=== PATIENT | female | born 1970 | race Caucasian/White ===

== ENCOUNTER 2019-01-19 13:14 | Day surgery (SDC) | payer BC ==
[2019-01-19] MEDS ORDERED: LACTATED RINGERS 1,000 ML IV ONE (13:46)
--- NOTE | 2019-01-19 15:18 | ANESTHESIA ---
Pre-Anesthesia VS, & Labs - Diagnosis anemia, abdominal pain, change in bowel habits - Procedure colonoscopy, EGD Vital Signs: Temp Pulse Resp BP Pulse Ox 37.4 C 79 18 134/85 H 100 01/19/19 13:49 01/19/19 13:49 01/19/19 13:49 01/19/19 13:49 01/19/19 13:49 Height 5 ft 6 in Weight (kg) 83 kg - NPO >8 hours, Other (16oz of prep last at 8;30) - Is Patient ?: Waiver signed Home Medications and Allergies Home Medications: Ambulatory Orders Ferrous Gluconate [Iron] 60 mg PO DAILY 01/13/19 Levothyroxine [Synthroid] 112 mcg PO QDAC 01/13/19 QUEtiapine [SEROquel] 12 - 25 mg PO QPM 01/13/19 buPROPion HCl [Wellbutrin Sr] 200 mg PO DAILY 01/13/19 dilTIAZem HCl [Diltiazem ER] 180 mg PO DAILY 01/13/19 Ferrous Gluconate [Iron] 60 mg PO DAILY 01/13/19 Levothyroxine [Synthroid] 112 mcg PO QDAC 01/13/19 QUEtiapine [SEROquel] 12 - 25 mg PO QPM 01/13/19 buPROPion HCl [Wellbutrin Sr] 200 mg PO DAILY 01/13/19 dilTIAZem HCl [Diltiazem ER] 180 mg PO DAILY 01/13/19 Allergies/Adverse Reactions: Allergies Allergy/AdvReac Type Severity Reaction Status Date / Time hydrocodone [From Vicodin] Allergy Anaphylaxis Verified 01/13/19 16:51 latex Allergy Rash Verified 01/13/19 16:51 oxycodone [From Percocet] Allergy Anaphylaxis Verified 01/13/19 16:51 Penicillins Allergy Itching Verified 01/13/19 16:51 Sulfa (Sulfonamide Allergy Anaphylaxis Verified 01/13/19 16:51 Antibiotics) Anes History & Medical History - Anesthetic History Anesthesia Complications: reports: No previous complications - Medical History Cardiovascular: reports: None Pulmonary: reports: Asthma, Other Gastrointestinal: reports: GERD, Hiatal hernia Urinary: reports: Other Musculoskeletal: reports: Chronic back pain Endocrine/Autoimmune: reports: HyPOthyroidism Skin: reports: None - Surgical History General: Gastric surgery, Hiatal hernia repair, Other Eyes Ears Nose Throat (EENT): Tonsil/Adenoidectomy, Other Exam General: Alert Dental: WNL Mouth Opening: Greater than 4 Fingerbreadths Mallampati classification: II Thyromental Distance: greater than 6 cm Respiratory: Lungs clear Cardiovascular: Regular rate, Normal S1, Normal S2 Mental/Cognitive Status: Alert/Oriented X3 Plan Anesthesia Type: MAC Consent for Procedure(s) Verified and Reviewed: Yes Code Status: Attempt Resuscitation ASA classification: 2-Mild systemic disease Is this case an emergency?: No
[2019-01-19 17:44] VITALS: BP 132/78
== END 2019-01-19 13:15 | disposition home or self-care (01) ==
LOC: SDS 13:14
PROVIDERS: ATTEND Internal Medicine
PROC: 0DB48ZX Excision of Esophagogastric Junction, Via Natural or Artificial Opening Endoscopic, Diagnostic (ICD-10-PCS; 2019-01-19)
PROC: 0DJD8ZZ Inspection of Lower Intestinal Tract, Via Natural or Artificial Opening Endoscopic (ICD-10-PCS; principal; 2019-01-19 14:30)
PROC: 0DB98ZX Excision of Duodenum, Via Natural or Artificial Opening Endoscopic, Diagnostic (ICD-10-PCS; 2019-01-19 14:30)
DX: D50.9 Iron deficiency anemia, unspecified (principal); R10.9 Unspecified abdominal pain; R19.4 Change in bowel habit; K62.5 Hemorrhage of anus and rectum; K44.9 Diaphragmatic hernia without obstruction or gangrene; K64.1 Second degree hemorrhoids; K21.9 Gastro-esophageal reflux disease without esophagitis; J45.909 Unspecified asthma, uncomplicated
CPT/HCPCS: 43239; 45378; J7120

== ENCOUNTER 2019-11-02 08:22 | Outpatient (CLI) | payer OTHER | END 2019-11-02 08:23 | disposition home or self-care (01) | LOC: LAB 08:22 | PROVIDERS: ATTEND Physician Assistant Medical | DX: Z11.59 Encounter for screening for other viral diseases (principal) | CPT/HCPCS: 81599 ==

== ENCOUNTER 2019-12-27 12:53 | Outpatient (CLI) | payer OTHER ==
[2019-12-27 13:07] LABS: BASOPHILS % (AUTO) 0.6 %; BILIRUBIN,URINE NEGATIVE (NEGATIVE); EOSINOPHILS # (AUTO) 0.1 10^3/uL (0.0-0.7); EOSINOPHILS % (AUTO) 1.3 %; GLUCOSE, URINE (UA) NEGATIVE (NEGATIVE); HGB - HEMOGLOBIN 14.4 g/dL (12.0-16.0); KETONES,URINE (UA) NEGATIVE (NEGATIVE); LEUKOCYTE ESTERASE, URINE NEGATIVE (NEGATIVE); LYMPHOCYTES % (AUTO) 30.9 %; MEAN CORPUSCULAR HEMOGLOBIN 32.7 pg (27.0-31.0); MEAN CORPUSCULAR HGB CONC 33.1 g/dL (32.0-36.0); MEAN CORPUSCULAR VOLUME 98.6 fL (81.0-99.0); MEAN PLATELET VOLUME 11.2 fL (7.9-10.8); MONOCYTES # (AUTO) 0.5 10^3/uL (0.0-1.0); NEUTROPHILS # (AUTO) 3.8 10^3/uL (1.5-6.6); NEUTROPHILS % (AUTO) 58.9 %; NITRITE,URINE NEGATIVE (NEGATIVE); OCCULT BLOOD,URINE NEGATIVE (NEGATIVE); PLT - PLATELET COUNT 233 10^3/uL (130-450); PROTEIN,URINE NEGATIVE (NEGATIVE); RED BLOOD COUNT 4.41 10^6/uL (4.20-5.40); RED CELL DISTRIBUTION WIDTH 11.7 % (12.0-15.0); UROBILINOGEN,URINE 0.2 (NORMAL) E.U./dL (NORMAL); WHITE BLOOD COUNT 6.4 x10^3/uL (4.8-10.8)
[2019-12-27 13:21] LABS: BACTERIA,URINE None Seen /HPF (None Seen); CLARITY,URINE CLEAR (CLEAR); MUCUS,URINE Moderate Strands; RBC,URINE None Seen /HPF (0-5); SQUAMOUS EPITHELIAL CELL,UR NONE SEEN (<= Few)
[2019-12-27 13:27] LABS: ALBUMIN 4.2 g/dL (3.2-5.5); CALCIUM 9.1 mg/dL (8.5-10.3); CREATININE 0.9 mg/dL (0.4-1.0); PHOSPHORUS 4.1 mg/dL (2.5-4.6)
[2019-12-27 13:28] LABS: CREATININE,URINE 233.1 mg/dL; MICROALBUM/CREATININE RATIO,UR 2.1 ug/mg (<30.0); MICROALBUMIN,URINE 0.5 mg/dL (0-300.0)
== END 2019-12-27 12:54 | disposition home or self-care (01) ==
LOC: LAB 12:53
PROVIDERS: ATTEND Internal Medicine Nephrology
DX: N18.2 Chronic kidney disease, stage 2 (mild) (principal); D63.1 Anemia in chronic kidney disease; N25.81 Secondary hyperparathyroidism of renal origin; R31.9 Hematuria, unspecified; R80.9 Proteinuria, unspecified
CPT/HCPCS: 36415; 80048; 81001; 82040; 82043; 82570; 83540; 83970; 84100; 84466; 85025; 87086

== ENCOUNTER 2020-01-24 16:58 | Outpatient (CLI) | payer OTHER | END 2020-01-24 16:59 | disposition home or self-care (01) | LOC: COV 16:58 | PROVIDERS: ATTEND Family Medicine | DX: R50.9 Fever, unspecified (principal); R05 Cough; R53.83 Other fatigue; M79.10 Myalgia, unspecified site; R06.02 Shortness of breath; J02.9 Acute pharyngitis, unspecified; R19.7 Diarrhea, unspecified; R09.81 Nasal congestion; R11.2 Nausea with vomiting, unspecified; Z20.828 Contact with and (suspected) exposure to other viral communicable diseases ==

== ENCOUNTER 2020-02-23 14:14 | Outpatient (CLI) | payer OTHER | END 2020-02-23 14:15 | disposition home or self-care (01) | LOC: LAB 14:14 | PROVIDERS: ATTEND Physician Assistant Medical | DX: Z20.828 Contact with and (suspected) exposure to other viral communicable diseases (principal) ==

== ENCOUNTER 2020-03-16 14:32 | Outpatient (CLI) | payer OTHER | END 2020-03-16 14:33 | disposition home or self-care (01) | LOC: LAB 14:32 | PROVIDERS: ATTEND Physician Assistant | DX: U07.1 COVID-19 (principal) ==

== ENCOUNTER 2020-07-21 13:07 | Outpatient (CLI) | payer OTHER ==
--- NOTE | 2020-07-21 13:33 | Ultrasound Report ---
PROCEDURE: Head or Neck Soft Tissue INDICATIONS: L SIDE NECK MASS TECHNIQUE: Real time scanning was performed of the neck region of interest, with image documentation . COMPARISON: None. FINDINGS: Palpable abnormality in the lateral left neck. In this region there is a small lymph node with normal morphology and preserved fatty hilum. This measures 0.3 cm in short axis diameter. No increased bloo d flow. No fluid collection. IMPRESSION: Palpable abnormality in the left lateral neck corresponds to a small morphologically normal lymph nod e. Recommend continued clinical surveillance. Reviewed by: Omar Sosa MD on 07/21/2020 12:31 PM MIGUEL Approved by: Omar Sosa MD on 07/21/2020 12:31 PM MIGUEL Station ID: [id number]
== END 2020-07-21 13:08 | disposition home or self-care (01) ==
LOC: DI 13:07
PROVIDERS: ATTEND Physician Assistant Medical
DX: R22.1 Localized swelling, mass and lump, neck (principal)